=== PATIENT | female | born 2000 | race Caucasian/White ===

== ENCOUNTER 2018-03-17 03:26 | Emergency (ER) | payer OTHER ==
[~2018-03-17] VITALS: Ht 152.4 cm; Wt 72.6 kg
[2018-03-17 03:26] VITALS: BP_SYST 133
[2018-03-17 04:25] LABS: ACETAMINOPHEN < 1 ug/mL (1-30); ALCOHOL, BLOOD < 3 mg/dL (<10)
[2018-03-17 04:50] LABS: BILIRUBIN,URINE NEGATIVE (NEGATIVE); CLARITY/URINE SL HAZY (CLEAR); COLOR,URINE YELLOW (YELLOW); GLUCOSE,URINE NEGATIVE (NEGATIVE); KETONES,URINE NEGATIVE (NEGATIVE); LEUKOCYTE ESTERASE ,URINE TRACE (NEGATIVE); NITRITE, URINE NEGATIVE (NEGATIVE); PH,URINE 5.5 (5.0-8.0); PROTEIN URINE 2+ (NEGATIVE)
[2018-03-17 04:53] VITALS: BP_SYST 126
[2018-03-17 04:54] LABS: BLOOD, URINE TRACE (NEGATIVE)
[2018-03-17 05:23] LABS: BARBITURATE, URINE NEGATIVE (NEG <=200); BENZODIAZEPINE, URINE NEGATIVE (NEG <=150); CANNABINOID, URINE NEGATIVE (NEG <=50); COCAINE, URINE NEGATIVE (NEG <=150); METHAMPHETAMINES SCREEN,URINE POSITIVE (NEG <=500); OPIATE, URINE NEGATIVE (NEG <=100); PHENCYCLIDINE SCREEN,URINE NEGATIVE (NEG <=25); UR TRICYCLIC ANTIDEPRESSANTS NEGATIVE (NEG <=300); URINE AMPHETAMINE POSITIVE (NEG <=500); URINE METHADONE NEGATIVE (NEG <=200); URINE OXYCODONE SCREEN NEGATIVE (NEG <=100); URINE PROPOXYPHENE SCREEN NEGATIVE (NEG <=300)
[2018-03-17 05:28] LABS: BACTERIA,URINE MANY /HPF (None Seen); FINE GRANULAR CASTS,URINE 0-10 /LPF (None Seen); HYALINE CASTS, URINE 0-10 /LPF (None Seen); MUCUS,URINE 2+ /LPF (None Seen)
== END 2018-03-17 04:53 ==
LOC: SED 03:26
DX: Z04.1 Encounter for examination and observation following transport accident (principal); F15.10 Other stimulant abuse, uncomplicated; R03.0 Elevated blood-pressure reading, without diagnosis of hypertension; S16.1XXA Strain of muscle, fascia and tendon at neck level, initial encounter; V89.2XXA Person injured in unspecified motor-vehicle accident, traffic, initial encounter; Y93.89 Activity, other specified; Y92.410 Unspecified street and highway as the place of occurrence of the external cause; Y99.9 Unspecified external cause status; Z04.8 Encounter for examination and observation for other specified reasons; Z01.89 Encounter for other specified special examinations; Z03.89 Encounter for observation for other suspected diseases and conditions ruled out
CPT/HCPCS: 36415; 72040; 80307; 81000; 87086; 87186; 99285; G0480; G0481; G0482; P9612